=== PATIENT | male | born 1930 | race Caucasian/White ===

== ENCOUNTER 2016-10-24 14:28 | Emergency (ER) | payer OTHER ==
[~2016-10-24] VITALS: Ht 160 cm; Wt 78.9 kg
[2016-10-24 14:31] VITALS: Ht 160 cm; Wt 78.9 kg
[2016-10-24 18:35] LABS: ADD UMIC YES; URINE BILIRUBIN (Dip) NEGATIVE (NEGATIVE); URINE BLOOD (Dip) 3+ (NEGATIVE); URINE COLOR LT. YELLOW (YELLOW); URINE GLUCOSE (Dip) NEGATIVE (NEGATIVE); URINE KETONES (Dip) NEGATIVE (NEGATIVE); URINE LEUKOCYTE ESTERASE (Dip) 3+ (NEGATIVE); URINE NITRITE (Dip) NEGATIVE (NEGATIVE); URINE TOTAL PROTEIN (Dip) 1+ (NEGATIVE); URINE UROBILINOGEN (Dip) 0.2 E.U./dL (0.1-1.0)
[2016-10-24 19:04] LABS: BACTERIA,URINE MODERATE
[2016-10-24] MEDS ORDERED: CEFEPIME 1GM/50 ML (PMX) 50 ML IVPB ONE (19:30)
[2016-10-24] MEDS ORDERED: NITR-58 PO (19:43)
[2016-10-24] MEDS ORDERED: CIPR500T4 PO (19:45)
--- NOTE | 2016-10-24 19:52 | ERD ---
ER Documentation Chief Complaint Date/Time DATE: 10/24/16 TIME: 19:46 Chief Complaint f/c replacement HPI This 86-year-old male presents emergency room because his Garzon catheter is not draining properly. Says that he intermittently has some mild suprapubic discomfort as well. Denies any flank pain. Denies any fevers or chills. Denies dizziness. ROS All systems reviewed and are negative except as per history of present illness. Medications Home Meds Active Scripts Ciprofloxacin Hcl* (Ciprofloxacin Hcl*) 500 Mg Tablet, 500 MG PO BID for 7 Days , TAB Prov:MILADY CHING DO 10/24/16 Nitrofurantoin Monohyd Macrocr* (Macrobid*) 100 Mg Capsr, 100 MG PO BID, #14 CAP Prov:MILADY CHING DO 10/24/16 Allergies Allergies: Coded Allergies: No Known Allergy (Unverified , 10/24/16) PMhx/Soc Hx Cardiac Disorders: Yes (hypertension) Hx Alcohol Use: No Hx Substance Use: No Hx Tobacco Use: No Smoking Status: Never smoker Physical Exam Vitals Vital Signs Date Time Temp Pulse Resp B/P Pulse Ox O2 Delivery O2 Flow Rate FiO2 10/24/16 14:31 98.1 74 18 129/74 99 Physical Exam Const: [] No distress. ENT: Normal External Ears, Nose and Mouth. Neck: Full range of motion..~ No meningismus. Resp: Clear to auscultation bilaterally Cardio: Regular rate and rhythm, no murmurs Abd: Soft, non tender, non distended. Normal bowel sounds. Genital exam with Garzon catheter inserted into the side of the shaft this penis. Some purulent material inside of the tube and upper Garzon. No testicular tenderness or penile tenderness. No erythema swelling or calor. Back: No midline or flank tenderness Ext: No cyanosis, or edema Neur: Awake and alert oriented 3, no focal deficits Results 24 hrs Laboratory Tests Test 10/24/16 17:44 Urine Color LT. YELLOW Urine Clarity CLOUDY Urine pH 6.0 Urine Specific [place] 1.015 Urine Ketones NEGATIVE Urine Nitrite NEGATIVE Urine Bilirubin NEGATIVE Urine Urobilinogen 0.2 E.U./dL Urine Leukocyte Esterase 3+ Urine Microscopic RBC 10-25/HPF Urine Microscopic WBC >200/HPF Urine Epithelial Cells FEW Urine Bacteria MODERATE Urine Hemoglobin 3+ Urine Glucose NEGATIVE% Urine Total Protein 1+ Current Medications Medications (Trade) Dose Ordered Sig/Daniel Route PRN Reason Start Time Stop Time Status Last Admin Dose Admin Cefepime HCl (Maxipime 1gm/50 ml (Pmx)) 50 ml @ 100 mls/hr ONCE ONCE IVPB 10/24/16 19:30 10/24/16 19:59 10/24/16 19:28 Procedures/MDM Elderly male with indwelling Garzon catheter associated infection. Catheter was changed in the emergency room. Patient was given cefepime 1 g via IV to initiate quicker treatment of his urinary tract infection. Urine culture was also taken. They discharged with both Cipro and Macrobid for his complicated urinary tract infection. He has complete stable vital signs and no flank pain. He is relatively well-appearing. He was coming by his daughter. I'm discharging with primary care follow up instructions to see his urologist as soon as possible. Return precautions the also given for any signs of fever dizziness or discomfort. Departure Diagnosis: Primary Impression: UTI (urinary tract infection) Additional Impression: Complication of catheter Condition: Stable Patient Instructions: Catheter-Associated Urinary Tract Infections Additional Instructions: Llame al doctor MAANA y ekaterina shawn LOW PARA DENTRO DE 2-3 LIGHT. Tambien consigue un referral para [place] ULOLOGIST. Dgale a la secretaria que nosotros le instruimos hacer esta low.Avise o llame si [place] condicin se empeora antes de la low. Regresa aqui si peor o no mejor. MILADY CHING DO Oct 24, 2016 19:52
[2016-10-24 20:30] VITALS: BP 161/82; PULSE 83; RESP 19; TEMP 98.2
== END 2016-10-24 20:30 | disposition home or self-care (01) ==
LOC: FTE 14:28
DX: N39.0 Urinary tract infection, site not specified (principal); I10 Essential (primary) hypertension; Y73.8 Miscellaneous gastroenterology and urology devices associated with adverse incidents, not elsewhere classified
CPT/HCPCS: 51702; 81001; 87086; 96374; J0692; Z7502; 81003

== ENCOUNTER 2016-11-03 08:45 | Emergency (ER) | payer OTHER ==
[~2016-11-03] VITALS: Ht 165.1 cm; Wt 71.8 kg
[~2016-11-03 08:45] MED LIST: CIPR500T4 PO; NITR-58 PO
[2016-11-03 08:57] VITALS: Ht 165.1 cm; Wt 71.8 kg
[2016-11-03 11:10] LABS: ADD SCAN DIFF NO
[2016-11-03 11:12] LABS: ADD UMIC YES; URINE BILIRUBIN (Dip) NEGATIVE (NEGATIVE); URINE BLOOD (Dip) 1+ (NEGATIVE); URINE COLOR LT. YELLOW (YELLOW); URINE GLUCOSE (Dip) NEGATIVE (NEGATIVE); URINE KETONES (Dip) NEGATIVE (NEGATIVE); URINE LEUKOCYTE ESTERASE (Dip) NEGATIVE (NEGATIVE); URINE NITRITE (Dip) NEGATIVE (NEGATIVE); URINE TOTAL PROTEIN (Dip) 1+ (NEGATIVE); URINE UROBILINOGEN (Dip) 0.2 E.U./dL (0.1-1.0)
[2016-11-03 11:14] LABS: HEMATOCRIT 30.6 % (42.0-52.0); HEMOGLOBIN 9.8 g/dl (14.0-18.0); MEAN CORPUSCULAR HEMOGLOBIN 30.4 pg (29.0-33.0); MEAN PLATELET VOLUME 10.7 fl (7.4-10.4); PLATELET COUNT 208 10^3/UL (140-415); RED BLOOD COUNT 3.22 10^6/ul (4.70-6.10); RED CELL DISTRIBUTION WIDTH 11.9 % (11.5-14.5); WHITE BLOOD COUNT 5.8 10^3/ul (4.8-10.8)
[2016-11-03 11:28] LABS: ALBUMIN 3.6 g/dl (3.3-4.9)
[2016-11-03 11:29] LABS: POTASSIUM 3.8 mmol/L (3.5-5.1)
[2016-11-03 11:30] LABS: BACTERIA,URINE MODERATE
[2016-11-03 11:31] LABS: ALBUMIN/GLOBULIN RATIO 0.94; BILIRUBIN,INDIRECT 0.5 mg/dl (0-1.1); BILIRUBIN,TOTAL 0.5 mg/dl (0.2-1.3); CREATININE 2.52 mg/dl (0.61-1.24); TOTAL PROTEIN 7.4 g/dl (6.1-8.1)
[2016-11-03 11:32] LABS: CALCIUM 10.1 mg/dl (8.4-10.2)
--- NOTE | 2016-11-03 12:13 | ERD ---
ER Documentation Chief Complaint Date/Time DATE: 11/03/16 TIME: 12:12 Chief Complaint CAME IN VIA INTAKE DUE URINARY RETENTION WITH CURRENT ADAM CATHETER HPI This is an 86-year-old male who presents to the emergency room for pain around his Adam catheter site. The patient does state he has a Adam catheter placed due to urinary retention and a enlarged prostate. This patient denies any fevers associated with this, denies any flank pain and came to the emergency room for evaluation. ROS All systems reviewed and are negative except as per history of present illness. Medications Home Meds Active Scripts Ciprofloxacin Hcl* (Ciprofloxacin Hcl*) 500 Mg Tablet, 500 MG PO BID for 7 Days , TAB Prov:MILADY CHING DO 10/24/16 Nitrofurantoin Monohyd Macrocr* (Macrobid*) 100 Mg Capsr, 100 MG PO BID, #14 CAP Prov:MILADY CHING DO 10/24/16 Allergies Allergies: Coded Allergies: No Known Allergy (Unverified , 10/24/16) PMhx/Soc History of Surgery: No Anesthesia Reaction: No Hx Neurological Disorder: No Hx Respiratory Disorders: No Hx Cardiac Disorders: Yes (hypertension) Hx Psychiatric Problems: No Hx Miscellaneous Medical Probl: No Hx Alcohol Use: No Hx Substance Use: No Hx Tobacco Use: No Smoking Status: Never smoker Physical Exam Vitals Vital Signs Date Time Temp Pulse Resp B/P Pulse Ox O2 Delivery O2 Flow Rate FiO2 11/03/16 08:57 98.0 60 18 115/57 97 Physical Exam INITIAL VITAL SIGNS: Reviewed by me GENERAL: The patient is well developed and appropriate for usual state of health in no apparent distress HEENT: Pupils equal, round, and reactive to light. EOMI. There is no scleral icterus. NECK: C-spine is soft and supple, there is no meningismus. There is no cervical lymphadenopathy. LUNGS: Clear to auscultation bilaterally. There are no rales, wheezes or rhonchi. HEART: Regular rate and rhythm, no murmurs, clicks, rubs or gallops. ABDOMEN: Soft, non-tender, non-distended. There are bowel sounds in all four quadrants. No rebound or guarding. EXTREMITIES: There is no peripheral cyanosis or edema. No focal swelling or erythema. NEUROLOGICAL: The patient moves all four extremities with 5/5 strength. Cranial nerves II - XII are intact. Normal gait. Alert and oriented SKIN: There is no apparent rash or petechiae. Genitourinary: Adam catheter in place on the lateral side of the penis extending into the urethra with urine output, mild stenosis noted at the urethra HEME/LYMPHATIC: There is no evidence of excessive bruising or lymphedema. PSYCHIATRIC: The patient does not appear anxious or depressed. Result Diagram: 11/03/16 1020 11/03/16 1020 Results 24 hrs Laboratory Tests Test 11/03/16 10:05 11/03/16 10:20 Urine Color LT. YELLOW Urine Clarity CLEAR Urine pH 5.5 Urine Specific [place] 1.025 Urine Ketones NEGATIVE Urine Nitrite NEGATIVE Urine Bilirubin NEGATIVE Urine Urobilinogen 0.2 E.U./dL Urine Leukocyte Esterase NEGATIVE Urine Microscopic RBC 10-25/HPF Urine Microscopic WBC 5-10/HPF Urine Epithelial Cells FEW Urine Bacteria MODERATE Urine Hemoglobin 1+ Urine Glucose NEGATIVE% Urine Total Protein 1+ White Blood Count 5.810^3/ul Red Blood Count 3.2210^6/ul Hemoglobin 9.8g/dl Hematocrit 30.6% Mean Corpuscular Volume 95.0fl Mean Corpuscular Hemoglobin 30.4pg Mean Corpuscular Hemoglobin Concent 32.0g/dl Red Cell Distribution Width 11.9% Platelet Count 68223^3/UL Mean Platelet Volume 10.7fl Sodium Level 138mmol/L Potassium Level 3.8mmol/L Chloride Level 105mmol/L Carbon Dioxide Level 23mmol/L Anion Gap 14 Blood Urea Nitrogen 24mg/dl Creatinine 2.52mg/dl Glucose Level 139mg/dl Calcium Level 10.1mg/dl Total Bilirubin 0.5mg/dl Direct Bilirubin 0.00mg/dl Indirect Bilirubin 0.5mg/dl Aspartate Amino Transf (AST/SGOT) 19IU/L Alanine Aminotransferase (ALT/SGPT) 14IU/L Alkaline Phosphatase 59IU/L Total Protein 7.4g/dl Albumin 3.6g/dl Globulin 3.80g/dl Albumin/Globulin Ratio 0.94 Procedures/MDM This patient is an 86-year-old male who presents to the emergency room for evaluation of pain around his Adam catheter site. This patient has a Adam catheter in place for BPH and urinary retention. The patient did have good output from his Adam however he states that he has not had a change in 1 month. The patient has Adam catheter replaced in the emergency room. Lab work was drawn, no signs of leukocytosis. No definitive signs of acute urinary tract infection. This patient is hemodynamically stable and in no acute distress and will be discharged home at this time Departure Diagnosis: Primary Impression: Urinary catheter (Adam) change required Additional Impressions: Renal insufficiency Normocytic anemia Condition: Stable DEYANIRA WATKINS DO Nov 03, 2016 12:13
[2016-11-03] MEDS ORDERED: HYDR-3671 PO (12:42)
[2016-11-03] MEDS ORDERED: CARV25TA79 PO (12:43)
[2016-11-03 13:53] LABS: EOSINOPHILS # 0.2 10^3/ul (0.0-0.5); LYMPHOCYTES # 1.6 10^3/ul (0.8-2.9); MONOCYTE # 0.7 10^3/ul (0.3-0.9); NEUTROPHIL # 3.4 10^3/ul (1.6-7.5); PLATELETS CLUMPS FEW
[2016-11-03 14:04] VITALS: BP 144/89; PULSE 79; RESP 22
== END 2016-11-03 14:08 | disposition home or self-care (01) ==
LOC: E/R 08:45
DX: Z46.6 Encounter for fitting and adjustment of urinary device (principal); R40.2252 Coma scale, best verbal response, oriented, at arrival to emergency department; N28.9 Disorder of kidney and ureter, unspecified; D64.9 Anemia, unspecified; I10 Essential (primary) hypertension; R40.2142 Coma scale, eyes open, spontaneous, at arrival to emergency department; R40.2362 Coma scale, best motor response, obeys commands, at arrival to emergency department
CPT/HCPCS: 51702; 80053; 81001; 85025; Z7502; 81003